=== PATIENT | female | born 1950 | race Caucasian/White ===

== ENCOUNTER 2022-08-28 18:59 | Inpatient (IN) | payer MEDICARE ==
[~2022-08-28] VITALS: Ht 162.6 cm; Wt 75.1 kg
[2022-08-28 00:30] VITALS: BP 120/44
[2022-08-28] MEDS ORDERED: IV NORMAL SALINE 250 ML IV ONE (19:25)
[2022-08-28] MEDS ORDERED: SWABABLE VALVE TRANSFER SET EA MC ONE (19:25)
[2022-08-28] MEDS ORDERED: IOHEXOL 350 100 ML INFUS..BTL ONE (19:25)
--- NOTE | 2022-08-28 19:27 | NUR ---
Patient was taking down to CT scan via gurny
[2022-08-28] MEDS ORDERED: IV NS 1000 ML 1,000 ML IV ONE (19:45)
--- NOTE | 2022-08-28 19:52 | NUR ---
Patient back from CT scan
--- NOTE | 2022-08-28 20:03 | NUR ---
LATE ENTRY: PATIENT TO ROOM #3, INFORMED OF PLAN OF CARE ASSISTED INTO GOWN AND PLACED ON MONITOR. BEDSIDE EKG WAS DONE FOR MD REVIEW, BEDSIDE GLUCOSE DONE,#20G ESTABLISHED IN RIGHT UPPER ARM, #20 ESTABLISHED IN LEFT ARM, BLOOD WAS COLLECTED AND SENT TO LAB. PATIENT IS A/OX3, LYLE, RIGHT SIDE WEAKNESS NOTED TO ARM WITH TREMORS AND RLE, UNEVEN SMILE WITH RIGHT SIDE DROOP WITH SLIGHT SLURED SPEECH PER PATIENT. PATIENT WENT TO CT HL INFILTRATED, ANOTHER #20G ESTABLISHED IN LEFT UPPER ARM CT WAS CONTINUED. POST CT SMILE IS EVEN SPEECH CLEAR, WILL INFORM MD UPON ARRIVAL BACK TO UNIT AND CONTINUE TO MONITOR.
[2022-08-28 20:09] LABS: HEMATOCRIT 42.2 % (31.2-41.9); MEAN CORPUSCULAR HEMOGLOBIN 32.1 uug (24.7-32.8); MEAN CORPUSCULAR VOLUME 95.3 fL (75.5-95.3); PLATELET COUNT (AUTO) 255 K/uL (179-408)
[2022-08-28] MEDS ORDERED: PANT40TA2 PO (20:20)
[2022-08-28] MEDS ORDERED: AMLO-212 PO (20:20)
[2022-08-28] MEDS ORDERED: ATOR80TA PO (20:20)
[2022-08-28] MEDS ORDERED: ASPIRIN 81 MG TAB.CHEW PO ONE (20:30)
--- NOTE | 2022-08-28 20:38 | NUR ---
RADIOLOGY AT BEDSIDE.
--- NOTE | 2022-08-28 20:45 | NUR ---
ASSISTED TO BSC AND BACK TO BED IVF INFUSING PER ORDER.
[2022-08-28 20:49] LABS: MAGNESIUM 2.2 mg/dL (1.8-2.4)
[2022-08-28 21:05] LABS: CARBON DIOXIDE 25 mmol/L (21-32); CHLORIDE 106 mmol/L (98-107); CREATININE 0.8 mg/dL (0.6-1.3); GLUCOSE 135 mg/dL (74-106); POTASSIUM 3.8 mmol/L (3.5-5.1); UREA NITROGEN, BLOOD 17 mg/dL (7-18)
[2022-08-28] MEDS ORDERED: ASPIRIN 81 MG TAB.CHEW ONE ×2 (21:05→21:07)
--- NOTE | 2022-08-28 21:59 | NUR ---
MD at bedside talking with patient.
--- NOTE | 2022-08-28 21:59 | NUR ---
Meal tray given.
[2022-08-28] MEDS ORDERED: MAG HYDROX/AL HYDROX/SIMETH 30 ML LIQUID UDC PO PRN (22:15)
[2022-08-28] MEDS ORDERED: ACETAMINOPHEN 325 MG TABLET PO PRN (22:15)
--- NOTE | 2022-08-28 23:12 | NUR ---
Report given to accepting nurse Lee, patient remains stable for transport to unit. Awaiting call back when room is clean.
[2022-08-29] MEDS ORDERED: DEXTROSE 50% 50 ML DISP.SYRIN IV PRN (00:30)
[2022-08-29] MEDS: ENOXAPARIN SODIUM 40 MG/0.4 ML DISP.SYRIN SQ SCH ×2 (00:37→20:20)
--- NOTE | 2022-08-29 06:53 | NUR ---
TEXT DR. GALE FOR MRI APPROVAL.
--- NOTE | 2022-08-29 06:54 | NUR ---
MRI ON HOLD PER , HE WILL LET US KNOW.
[2022-08-29] MEDS ORDERED: BLOOD SUGAR DIAGNOSTIC 1 EACH STRIP VI SCH ×2 (07:30)
[2022-08-29 07:48] LABS: HEMATOCRIT 38.6 % (31.2-41.9); MEAN CORPUSCULAR HEMOGLOBIN 31.4 uug (24.7-32.8); MEAN CORPUSCULAR VOLUME 94.7 fL (75.5-95.3); PLATELET COUNT (AUTO) 227 K/uL (179-408)
[2022-08-29 08:04] LABS: CARBON DIOXIDE 27 mmol/L (21-32); CHLORIDE 110 mmol/L (98-107); CHOLESTEROL 203 mg/dL (<200); CREATININE 0.8 mg/dL (0.6-1.3); GLUCOSE 155 mg/dL (74-106); HDL CHOLESTEROL 66 mg/dL (40-60); TRIGLYCERIDES 99 MG/DL (30-150); UREA NITROGEN, BLOOD 16 mg/dL (7-18)
[2022-08-29] MEDS: BLOOD SUGAR DIAGNOSTIC 1 EACH STRIP VI SCH ×4 (08:16→20:33)
[2022-08-29 08:32] VITALS: BP 155/72
[2022-08-29] MEDS: PANTOPRAZOLE SODIUM 40 MG TABLET.DR PO SCH (08:34)
[2022-08-29] MEDS: ASPIRIN EC 81 MG TABLET.DR PO SCH (08:34)
[2022-08-29] MEDS: AMLODIPINE 5 MG TABLET PO SCH (08:35)
[2022-08-29] MEDS ORDERED: PANTOPRAZOLE SODIUM 40 MG VIAL IV SCH (09:00)
--- NOTE | 2022-08-29 09:57 | NUR ---
Social work consult was requested for a patient in [facility] for TIA resources. Patient is a 72-year-old female admitted to the hospital for a TIA. Patient is alert and oriented X4 and she presents with depressed mood and congruent affect. Patient states her primary contact is her son, Amador ([phone]) and he lives in [place]. Patient states she lives alone at [address] [place] [address]. 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 SW completed a PHQ 9 Screening with the patient, and he scored a 5 and SW spoke with Anselmo Rosa NP to get a psychiatrist consultation and contacted Dr. Roberts. Patient states she has been feeling depressed since she stopped taking her depression medication and is going to restart taking it again. SW reinforced the importance of taking the medication and patient appeared motivated to continue taking SSRIs. SW provided stroke education, gave stroke resources and placed resources in patients chart. Patient denies history of substance abuse and there is no toxicology report. Patient states she has a history of depression and is seeing a therapist once a week. Patient states in the past she has had passive suicidal ideation but denies current suicidal or homicidal ideation. SW provided emotional support, validation, and coping strategies. Patients discharge plan is to go home to [address] [place] [address].
[2022-08-29] MEDS: INSULIN REGULAR, HUMAN 300 UNIT/3 ML VIAL SQ PRN ×3 (11:19→20:35)
[2022-08-29 11:38] VITALS: BP 153/66
[2022-08-29 15:44] VITALS: BP 156/65
--- NOTE | 2022-08-29 16:55 | NUR ---
2D ECHO WITH BUBBLE STUDY DONE. EF 60-65%. NEGATIVE BUBBLE STUDY.
--- NOTE | 2022-08-29 17:53 | NUR ---
pt aox4. in no acute distress. no sign of tia/stoke noted. nihss score 0. stoke education was given to pt. swallow, pt, ot eval done. mri resulted, pt is ambulatory with steady gait. pt tolerated regular diet without difficulty. md made aware. 2d echo with bubble study done. pt is diabetic, md made aware, switch diet from regular to ccho 60gms per md. safety measure in placed. bed locked. all needs attended. will endorsed to noc shift.
[2022-08-29] MEDS ORDERED: CLOP75TA15 PO (18:21)
[2022-08-29 19:23] LABS: *BILIRUBIN,URIN NEGATIVE (NEGATIVE); *BLOOD, URINE NEGATIVE (NEGATIVE); *CLARITY,URINE CLEAR (CLEAR); *COLOR,URINE LIGHT YELLOW (YELLOW); *KETONES,URINE NEGATIVE (NEGATIVE); *UROBILINOGEN,URINE 0.2 E.U./dl (NORMAL); LEUKOCYTE ESTERASE ,URINE NEGATIVE (NEGATIVE); NITRITE, URINE NEGATIVE (NEGATIVE); UGLUCOSE TRACE (NEGATIVE)
[2022-08-29 19:30] LABS: BACTERIA,URINE NONE SEEN /HPF (NONE SEEN); RBC,URINE 0-3 /HPF (0-3); SQUAMOUS EPITHELIAL CELL,UR FEW /HPF (NONE SEEN); WBC,URINE NONE SEEN /HPF (0-3)
[2022-08-29 20:00] VITALS: BP 146/66
--- NOTE | 2022-08-29 20:10 | NUR ---
patient walking around the hallway she said that her right leg is weaker than her left leg and she wants to do strengthening exercise and that physical therapist saw her this today . advised patient to not over due it and she wants to nurse can escort her back to bed . she said she will walk back to her room.
--- NOTE | 2022-08-29 20:33 | NUR ---
fingerstick for b/s done and patient result is 157 follow ISS .
[2022-08-29] MEDS ORDERED: ATORVASTATIN 40 MG TABLET PO SCH (21:00)
[2022-08-29] MEDS ORDERED: SIMVASTATIN 20 MG TABLET PO SCH (21:00)
--- NOTE | 2022-08-29 22:30 | NUR ---
patient verbalized she wants to go to sleep now bilateral lower scds (dvt pump ) applied and educated patient advised to call when she wants to go to the bathroom so the nurse can removed the DVT pump call light placed with in reach .
[2022-08-30] VITALS: BP 132/61
[2022-08-30 04:00] VITALS: BP 116/45
[2022-08-30] MEDS: PANTOPRAZOLE SODIUM 40 MG TABLET.DR PO SCH (06:36)
[2022-08-30] MEDS: BLOOD SUGAR DIAGNOSTIC 1 EACH STRIP VI SCH ×2 (06:44→11:29)
[2022-08-30 06:53] LABS: HEMATOCRIT 39.8 % (31.2-41.9); MEAN CORPUSCULAR HEMOGLOBIN 31.9 uug (24.7-32.8); MEAN CORPUSCULAR VOLUME 94.2 fL (75.5-95.3); PLATELET COUNT (AUTO) 224 K/uL (179-408)
[2022-08-30 07:12] LABS: CREATININE 0.7 mg/dL (0.6-1.3); MAGNESIUM 2.2 mg/dL (1.8-2.4); PHOSPHOROUS 2.8 mg/dL (2.5-4.9); POTASSIUM 4.1 mmol/L (3.5-5.1)
[2022-08-30] MEDS: INSULIN REGULAR, HUMAN 300 UNIT/3 ML VIAL SQ PRN ×2 (07:55→11:45)
[2022-08-30] MEDS: ASPIRIN EC 81 MG TABLET.DR PO SCH (08:22)
[2022-08-30] MEDS: AMLODIPINE 5 MG TABLET PO SCH (08:23)
[2022-08-30 08:24] VITALS: BP 143/69
--- NOTE | 2022-08-30 09:20 | NUR ---
Patient A/O x 4. speech is clear and coherent, no sign of TIA/STROKE noted. NIHSS score 0. Continue educating patient on S/S of TIA/STROKE. Safety precautions implemented.
[2022-08-30 11:14] VITALS: BP 139/70
--- NOTE | 2022-08-30 12:00 | NUR ---
Patient seen by [employer] neurologist, and Psychiatrist for evaluation per Psychiatrist clear per his prospective , also re-started Escitalopram po 5mg per psychiatrist.
[2022-08-30] MEDS ORDERED: ESCITALOPRAM OXALATE 10 MG TABLET PO SCH (13:00)
[2022-08-30] MEDS ORDERED: METF-440 PO (14:05)
--- NOTE | 2022-08-30 14:39 | NUR ---
Patient for discharge today, A/OX 4, denies pain, discomforts, S/S of TIA/Stroke, no SOB, NIHSS Score=0. new prescription send to prefer patient's pharmacy. All discharge instructions provided to patient, all belonging list reviewed and signed by patient. Patient verbalized understanding of discharge instructions.
--- NOTE | 2022-08-30 14:45 | NUR ---
pt is medically cleared for discharge per
[2022-08-30] MEDS ORDERED: ESCI-9 PO (14:46)
== END 2022-08-30 15:00 | disposition home health service (06) | DRG 206 ==
LOC: ER 18:59 → TELE3 22:10
PROVIDERS: ADMIT Nurse Practitioner Acute Care; ATTEND Nurse Practitioner Acute Care
DX: M94.0 Chondrocostal junction syndrome [Tietze] (principal); G45.9 Transient cerebral ischemic attack, unspecified; F33.1 Major depressive disorder, recurrent, moderate; I10 Essential (primary) hypertension; E78.5 Hyperlipidemia, unspecified; R29.810 Facial weakness; R47.1 Dysarthria and anarthria; E11.9 Type 2 diabetes mellitus without complications; Z86.73 Personal history of transient ischemic attack (TIA), and cerebral infarction without residual deficits; Z79.899 Other long term (current) drug therapy; Z88.0 Allergy status to penicillin; Z79.02 Long term (current) use of antithrombotics/antiplatelets; Z88.2 Allergy status to sulfonamides
CPT/HCPCS: 36415; 70450; 70496; 70551; 71045; 83605; 83735; 84100; 84443; 84484; 85025; 85651; 85730; 93005; 93307; A4663; G0378; J1650; J1815; J7040; Q9967

== ENCOUNTER 2023-11-05 10:45 | Inpatient (IN) | payer MEDICARE ==
[~2023-11-05] VITALS: Ht 160 cm; Wt 70.3 kg
[~2023-11-05 10:45] MED LIST: AMLO-212 PO; ATOR80TA PO; CLOP75TA15 PO; ESCI-9 PO; METF-440 PO; PANT40TA2 PO
[2023-11-05] MEDS ORDERED: LORAZEPAM 2 MG/1 ML VIAL ONE (11:01)
[2023-11-05 11:02] LABS: BASOPHILS # (AUTO) 0.1 K/UL (0.0-0.2); BASOPHILS % (AUTO) 1.3 % (0.0-2.0); EOSINOPHILS # (AUTO) 0.2 K/uL (0.0-0.7); EOSINOPHILS % (AUTO) 3.7 % (0.0-7.0); HEMATOCRIT 42.1 % (31.2-41.9); HEMOGLOBIN 14.4 g/dL (10.9-14.3); LYMPHOCYTES # (AUTO) 1.6 K/uL (0.8-4.8); LYMPHOCYTES % (AUTO) 31.7 % (20.5-51.5); MEAN CORPUSCULAR HEMOGLOBIN 31.1 uug (24.7-32.8); MEAN CORPUSCULAR HGB CONC 34 g/dL (32.3-35.6); MEAN CORPUSCULAR VOLUME 90.8 fL (75.5-95.3); MONOCYTES # (AUTO) 0.3 K/uL (0.1-1.30); MONOCYTES % (AUTO) 6.4 % (0.0-11.0); NEUTROPHILS # (AUTO) 2.9 K/uL (1.8-8.9); NEUTROPHILS % (AUTO) 56.9 % (38.5-71.5); PLATELET COUNT (AUTO) 231 K/uL (179-408); RED BLOOD CELL COUNT(AUTO) 4.64 MIL/uL (3.63-4.92); RED CELL DISTRIBUTION WIDTH 14.2 % (12.3-17.7); WHITE BLOOD COUNT (AUTO) 5.2 K/uL (3.8-11.8)
[2023-11-05] MEDS ORDERED: LABETALOL HCL 100 MG/20 ML VIAL ONE (11:02)
[2023-11-05] MEDS: LORAZEPAM 2 MG/1 ML VIAL IV ONE (11:09)
[2023-11-05 11:10] LABS: CALCIUM 9.5 mg/dL (8.5-10.1); CREATININE 1.1 mg/dL (0.6-1.3); POTASSIUM 4.3 mmol/L (3.5-5.1)
[2023-11-05] MEDS: LABETALOL HCL 100 MG/20 ML VIAL IV ONE (11:10)
[2023-11-05 11:12] LABS: DIFFERENTIAL COMMENT 1
[2023-11-05 11:16] LABS: ALBUMIN 3.9 g/dL (3.4-5.0); BILIRUBIN,DIRECT 0.1 mg/dL (0.0-0.2); BILIRUBIN,TOTAL 0.5 mg/dL (0.2-1.0); TOTAL PROTEIN, SERUM 7.8 g/dL (6.4-8.2)
[2023-11-05] MEDS ORDERED: LEVO5TAB29 PO (11:40)
[2023-11-05] MEDS ORDERED: VITA-287 PO (11:40)
[2023-11-05] MEDS ORDERED: EPIN0.3P3 IM (11:40)
[2023-11-05] MEDS ORDERED: LACT1CAP97 PO (11:40)
[2023-11-05] MEDS ORDERED: MIDO2.5T PO (11:40)
[2023-11-05] MEDS ORDERED: HYDR-894 PO (11:40)
[2023-11-05] MEDS ORDERED: OMEG1CAP55 PO (11:40)
[2023-11-05] MEDS ORDERED: CYCL30DR EACHEYE (11:40)
[2023-11-05] MEDS ORDERED: LABE100T5 PO (11:40)
[2023-11-05] MEDS ORDERED: ROSU10TA2 PO (11:40)
[2023-11-05] MEDS ORDERED: ASPI81TA31 PO (11:40)
[2023-11-05] MEDS ORDERED: ERGO400C PO (11:40)
[2023-11-05] MEDS ORDERED: PANT20TA2 PO (11:40)
[2023-11-05] MEDS ORDERED: DULA0.75 SQ (11:40)
[2023-11-05] MEDS ORDERED: ASPIRIN 81 MG TAB.CHEW ONE (15:03)
[2023-11-05] MEDS ORDERED: CLOPIDOGREL 75 MG TABLET ONE (15:03)
[2023-11-05] MEDS ORDERED: IOHEXOL 350 100 ML INFUS..BTL ONE (15:05)
[2023-11-05] MEDS ORDERED: SWABABLE VALVE TRANSFER SET EA MC ONE (15:05)
[2023-11-05] MEDS: ASPIRIN 81 MG TAB.CHEW PO ONE (15:05)
[2023-11-05] MEDS ORDERED: IV NORMAL SALINE 250 ML IV ONE (15:06)
[2023-11-05] MEDS: IV NS 1000 ML 1,000 ML IV ONE (15:09)
[2023-11-05] MEDS: CLOPIDOGREL 75 MG TABLET PO ONE (15:09)
[2023-11-05 17:01] VITALS: BP 137/72; TEMP 98; O2SAT 98
[2023-11-05 20:44] VITALS: BP 168/64; TEMP 98.1; O2SAT 99
[2023-11-05] MEDS ORDERED: PANTOPRAZOLE SODIUM 40 MG TABLET.DR PO PRN (20:45)
[2023-11-05] MEDS: BLOOD SUGAR DIAGNOSTIC 1 EACH STRIP VI SCH (21:00)
[2023-11-05] MEDS: CULTURELLE CAPSULE PO SCH (21:32)
[2023-11-05] MEDS: SIMVASTATIN 40 MG TABLET PO SCH (21:49)
[2023-11-06 00:09] VITALS: BP 150/65; TEMP 98.3; O2SAT 97
[2023-11-06 05:30] VITALS: BP 142/61; TEMP 97.7; O2SAT 96
[2023-11-06 07:56] VITALS: BP 153/63; TEMP 98; O2SAT 96
[2023-11-06 08:09] LABS: BASOPHILS # (AUTO) 0.1 K/UL (0.0-0.2); BASOPHILS % (AUTO) 1.2 % (0.0-2.0); EOSINOPHILS # (AUTO) 0.2 K/uL (0.0-0.7); EOSINOPHILS % (AUTO) 4.2 % (0.0-7.0); HEMATOCRIT 36.8 % (31.2-41.9); HEMOGLOBIN 12.7 g/dL (10.9-14.3); LYMPHOCYTES # (AUTO) 0.9 K/uL (0.8-4.8); LYMPHOCYTES % (AUTO) 18.2 % (20.5-51.5); MEAN CORPUSCULAR HEMOGLOBIN 31.3 uug (24.7-32.8); MEAN CORPUSCULAR HGB CONC 34 g/dL (32.3-35.6); MONOCYTES # (AUTO) 0.4 K/uL (0.1-1.30); MONOCYTES % (AUTO) 8.3 % (0.0-11.0); NEUTROPHILS # (AUTO) 3.2 K/uL (1.8-8.9); NEUTROPHILS % (AUTO) 68.1 % (38.5-71.5); PLATELET COUNT (AUTO) 194 K/uL (179-408); RED BLOOD CELL COUNT(AUTO) 4.04 MIL/uL (3.63-4.92); RED CELL DISTRIBUTION WIDTH 14.5 % (12.3-17.7); WHITE BLOOD COUNT (AUTO) 4.7 K/uL (3.8-11.8)
[2023-11-06 08:16] LABS: DIFFERENTIAL COMMENT 1
[2023-11-06 08:24] LABS: CALCIUM 8.8 mg/dL (8.5-10.1); CREATININE 0.9 mg/dL (0.6-1.3); POTASSIUM 4.1 mmol/L (3.5-5.1)
[2023-11-06] MEDS: VITAMIN B COMPLEX 1 TABLET PO SCH (08:54)
[2023-11-06] MEDS: ASPIRIN 81 MG TAB.CHEW PO SCH (08:55)
[2023-11-06] MEDS: CHOLECALCIFEROL 400 UNITS TABLET PO SCH (08:55)
[2023-11-06] MEDS: OMEGA-3 FATTY ACIDS/FISH OIL CAPSULE PO SCH (08:55)
[2023-11-06] MEDS: CLOPIDOGREL 75 MG TABLET PO SCH (08:55)
[2023-11-06] MEDS ORDERED: LEVOCETIRIZINE DIHYDROCHLORIDE PO SCH (09:00)
[2023-11-06 12:00] VITALS: BP 163/69; TEMP 98.2; O2SAT 97
[2023-11-06] MEDS: CETIRIZINE HCL 10 MG TABLET PO SCH (12:23)
[2023-11-06 16:00] VITALS: BP 162/66; TEMP 98.2; O2SAT 97
[2023-11-06 20:16] VITALS: BP 151/67; TEMP 98.2; O2SAT 96
[2023-11-07 00:20] VITALS: BP 145/70; TEMP 98.3; O2SAT 95
[2023-11-07 04:00] VITALS: BP 144/69; TEMP 97.8; O2SAT 96
[2023-11-07 07:40] VITALS: BP 143/57; TEMP 98; O2SAT 98
[2023-11-07 11:15] VITALS: BP 146/61; TEMP 97.9; O2SAT 98
[2023-11-07 15:25] VITALS: BP 158/62; TEMP 97.9; O2SAT 97
[2023-11-08 00:55] VITALS: BP 139/61; TEMP 98.5; O2SAT 97
[2023-11-08 04:40] VITALS: BP 147/66; TEMP 97.8; O2SAT 97
[2023-11-08 08:00] VITALS: BP 149/68; TEMP 98.2; O2SAT 98
[2023-11-08 12:00] VITALS: BP 161/77; TEMP 98.2; O2SAT 98
[2023-11-08 16:00] VITALS: BP 140/70; TEMP 98.6; O2SAT 98
[2023-11-08] MEDS ORDERED: DEXTROSE 50% 50 ML DISP.SYRIN IV PRN (17:45)
[2023-11-08] MEDS: BLOOD SUGAR DIAGNOSTIC 1 EACH STRIP VI SCH (17:58)
[2023-11-08 19:58] VITALS: BP 167/67; TEMP 98.2; O2SAT 96
[2023-11-08] MEDS: INSULIN REGULAR, HUMAN 300 UNIT/3 ML VIAL SQ PRN (21:09)
[2023-11-09] VITALS (7 sets, daily range): BP systolic 140–155; BP diastolic 52–71; TEMP 97.8–98.2; O2SAT 95–99
[2023-11-10 05:40] VITALS: BP 148/64; TEMP 97.9; O2SAT 97
[2023-11-10 11:31] VITALS: BP 133/67; TEMP 97.9; O2SAT 98
[2023-11-10] MEDS ORDERED: CETI10TA14 PO (12:26)
[2023-11-10] MEDS ORDERED: SIMV-49 PO (12:26)
[2023-11-10] MEDS ORDERED: CLOP75TA33 PO (12:26)
[2023-11-10 16:00] VITALS: BP 150/70; TEMP 97.4; O2SAT 100
[2023-11-10 16:29] VITALS: BP_SYST 133; BP_SYST 145; BP_DIAS 64; BP_DIAS 67
[2023-11-10 20:00] VITALS: BP 149/74; TEMP 97.3; O2SAT 98
[2023-11-11 06:00] VITALS: BP 146/64; TEMP 98; O2SAT 98
[2023-11-11 11:45] VITALS: BP 147/71; TEMP 97.7; O2SAT 97
[2023-11-11] MEDS ORDERED: METF-494 PO (17:20)
[2023-11-11] MEDS ORDERED: BLOO-360 METER (17:57)
== END 2023-11-11 16:17 | DRG 65 ==
LOC: ER 10:45 → TELE3 16:00 → MEDSURG3 11-09 15:40
PROVIDERS: ADMIT Nurse Practitioner Acute Care; ATTEND Nurse Practitioner Acute Care
DX: I63.9 Cerebral infarction, unspecified (principal); G81.91 Hemiplegia, unspecified affecting right dominant side; R47.89 Other speech disturbances; R29.702 NIHSS score 2; E78.5 Hyperlipidemia, unspecified; E11.9 Type 2 diabetes mellitus without complications; I10 Essential (primary) hypertension; Z98.890 Other specified postprocedural states; Z88.6 Allergy status to analgesic agent; Z88.1 Allergy status to other antibiotic agents; Z88.0 Allergy status to penicillin; Z91.018 Allergy to other foods; Z79.84 Long term (current) use of oral hypoglycemic drugs; Z79.899 Other long term (current) drug therapy; Z88.2 Allergy status to sulfonamides; Z86.73 Personal history of transient ischemic attack (TIA), and cerebral infarction without residual deficits; Z91.148 Patient's other noncompliance with medication regimen for other reason
CPT/HCPCS: 36415; 70450; 70496; 71045; 83921; 85025; 85730; 93005; G0378; J1815; J2060; J3490; J7040; Q9967

== ENCOUNTER 2023-11-11 15:17 | Inpatient (IN) | payer MEDICARE ==
[~2023-11-11] VITALS: Ht 147.3 cm; Wt 71.7 kg
[~2023-11-11 15:17] MED LIST changes: -AMLO-212 PO; +ASPI81TA31 PO; -ATOR80TA PO; +CETI10TA14 PO; -CLOP75TA15 PO; +CLOP75TA33 PO; +CYCL30DR EACHEYE; +DULA0.75 SQ; +EPIN0.3P3 IM; +ERGO400C PO; +HYDR-894 PO; +LABE100T5 PO; +LACT1CAP97 PO; +LEVO5TAB29 PO; +MIDO2.5T PO; +OMEG1CAP55 PO; +PANT20TA2 PO; -PANT40TA2 PO; +SIMV-49 PO; +VITA-287 PO
[2023-11-11 16:00] VITALS: BP 156/59; TEMP 97.7; O2SAT 99
[2023-11-11] MEDS ORDERED: METF-494 PO (17:20)
[2023-11-11] MEDS ORDERED: BLOO-360 METER (17:57)
[2023-11-11 20:00] VITALS: BP 149/56; TEMP 97.9; O2SAT 97
[2023-11-11] MEDS ORDERED: DEXTROSE 50% 50 ML DISP.SYRIN IV PRN (20:15)
[2023-11-11] MEDS: ACETAMINOPHEN 325 MG TABLET PO PRN (20:23)
[2023-11-11] MEDS: BLOOD SUGAR DIAGNOSTIC 1 EACH STRIP VI SCH (20:59)
[2023-11-11] MEDS: INSULIN REGULAR, HUMAN 300 UNIT/3 ML VIAL SQ PRN (21:03)
[2023-11-12 06:16] VITALS: BP 133/58; TEMP 97.5; O2SAT 96
[2023-11-12] MEDS: PANTOPRAZOLE SODIUM 40 MG TABLET.DR PO SCH (06:16)
[2023-11-12] MEDS: BLOOD SUGAR DIAGNOSTIC 1 EACH STRIP VI SCH (07:12)
[2023-11-12] MEDS: CULTURELLE CAPSULE PO SCH (09:12)
[2023-11-12] MEDS: CETIRIZINE HCL 10 MG TABLET PO SCH (09:12)
[2023-11-12] MEDS: OMEGA-3 FATTY ACIDS/FISH OIL CAPSULE PO SCH (09:13)
[2023-11-12] MEDS: CHOLECALCIFEROL 400 UNITS TABLET PO SCH (09:13)
[2023-11-12] MEDS: ASPIRIN 81 MG TAB.CHEW PO SCH (09:13)
[2023-11-12] MEDS: CLOPIDOGREL 75 MG TABLET PO SCH (09:14)
[2023-11-12] MEDS: LABETALOL HCL 100 MG TABLET PO SCH ×2 (09:15→17:52)
[2023-11-12] MEDS: VITAMIN B COMPLEX 1 TABLET PO SCH (09:19)
[2023-11-12 16:02] VITALS: BP 120/47; TEMP 97.9; O2SAT 98
[2023-11-12] MEDS: EZETIMIBE 10 MG TABLET PO SCH (17:44)
[2023-11-12] MEDS: METFORMIN XR 500 MG TAB.SR.24H PO SCH (17:45)
[2023-11-12 20:25] VITALS: BP 128/56; TEMP 98; O2SAT 96
[2023-11-12] MEDS: SIMVASTATIN 40 MG TABLET PO SCH (21:10)
[2023-11-12] MEDS ORDERED: MAGNESIUM HYDROXIDE 30 ML LIQUID UDC PO PRN (23:15)
[2023-11-13 05:50] VITALS: BP 106/54; TEMP 97.6; O2SAT 96
[2023-11-13 16:48] VITALS: BP 166/73; TEMP 98.5; O2SAT 97
[2023-11-13 18:34] VITALS: BP 141/69
[2023-11-13 20:50] VITALS: BP 148/60; TEMP 97.8; O2SAT 96
[2023-11-14] MEDS ORDERED: GUAIFENESIN/DEXTROMETHORPHAN 5 ML UDC PO PRN
[2023-11-14 06:10] VITALS: BP 116/49; TEMP 97.9; O2SAT 96
[2023-11-14] MEDS: ASCORBIC ACID 500 MG TABLET PO SCH (08:18)
[2023-11-14 16:00] VITALS: BP 137/56; TEMP 97.8; O2SAT 98
[2023-11-14] MEDS: POLYVINYL ALCOHOL OPHT DROPS 15 ML BOTTLE EACHEYE PRN (17:19)
[2023-11-14 22:52] VITALS: BP 142/57; TEMP 98.2; O2SAT 100
[2023-11-15] MEDS: CEphaleXIN 500 MG CAPSULE PO SCH (09:47)
[2023-11-15 16:00] VITALS: BP 134/48; TEMP 97.3; O2SAT 97
[2023-11-15 20:10] VITALS: BP 113/53; TEMP 97.8; O2SAT 95
[2023-11-15] MEDS: MELATONIN 3 MG TABLET PO SCH (23:22)
[2023-11-16 04:00] VITALS: BP 125/57; TEMP 97.8; O2SAT 98
[2023-11-16 07:33] VITALS: BP 140/56; TEMP 97.6; O2SAT 99
[2023-11-16 15:10] VITALS: BP 119/51; TEMP 98.2; O2SAT 100
[2023-11-17 07:40] VITALS: BP 122/60; TEMP 97.7; O2SAT 98
[2023-11-17 12:00] VITALS: BP 139/60; TEMP 97.7; O2SAT 98
[2023-11-17 15:56] VITALS: BP 101/52; TEMP 97.6; O2SAT 98
[2023-11-17 20:00] VITALS: BP 138/61; TEMP 97.4; O2SAT 99
[2023-11-18 06:26] VITALS: BP 124/52; TEMP 97.6; O2SAT 97
[2023-11-18] MEDS ORDERED: CEPH500C2 PO (11:14)
[2023-11-18 12:08] LABS: *ANTI-SCLERODERMA-70 AB <0.2 AI (0.0-0.9); *RNP ANTIBODIES 0.8 AI (0.0-0.9); *SJOGREN'S ANTI-SS-A <0.2 AI (0.0-0.9); *SJOGREN'S ANTI-SS-B <0.2 AI (0.0-0.9); *SMITH ANTIBODIES <0.2 AI (0.0-0.9); ANTI-DNA(DS) AB, QN 1 IU/mL (0-9); ANTI-NUCLEAR AB DIRECT Negative (Negative)
[2023-11-18 17:00] VITALS: BP 105/70
== END 2023-11-18 18:30 | disposition home health service (06) | DRG 57 ==
PROVIDERS: ADMIT Physical Medicine & Rehabilitation; ATTEND Physical Medicine & Rehabilitation
DX: I69.351 Hemiplegia and hemiparesis following cerebral infarction affecting right dominant side (principal); R47.01 Aphasia; L03.213 Periorbital cellulitis; E11.9 Type 2 diabetes mellitus without complications; E66.9 Obesity, unspecified; Z68.33 Body mass index [BMI] 33.0-33.9, adult; E78.5 Hyperlipidemia, unspecified; I10 Essential (primary) hypertension; K59.00 Constipation, unspecified; I69.320 Aphasia following cerebral infarction; Z88.0 Allergy status to penicillin; Z88.2 Allergy status to sulfonamides; F32.A Depression, unspecified; Z88.8 Allergy status to other drugs, medicaments and biological substances; Z91.018 Allergy to other foods; Z91.048 Other nonmedicinal substance allergy status; Z88.5 Allergy status to narcotic agent
CPT/HCPCS: 36415; 70551; 86038; 86140; 97535-GO-CO; J1815